=== PATIENT | male | born 1975 | race Caucasian/White ===

== ENCOUNTER 2018-11-12 23:17 | Emergency (ER) | payer OTHER ==
[2018-11-13] MEDS ORDERED: DEXAMETHASONE 10 MG/ML VIAL PO STA (00:34)
[2018-11-13] MEDS ORDERED: CHERRY SYRUP 10 ML UDC PO ONE (00:34)
[2018-11-13] MEDS ORDERED: HYDROcod/ACET 5/325 Prepack 4 PO STA (00:35)
[2018-11-13] MEDS ORDERED: KETOROLAC 60 MG/2 ML VIAL IM STA (00:35)
--- NOTE | 2018-11-13 00:37 | ED Physician Documentation ---
History of Present Illness - Stated complaint Stated Complaint: SWOLLEN KNEE - Chief complaint Chief Complaint: Ext Problem - History obtained from History obtained from: Patient - History of Present Illness Timing: Today - Additonal information Additional information: 43-year-old male with history of gout has been at his son's wedding today when he began to develop some swelling to his right knee. This progressed through the day and now he has significant pain associated with this as well as some swelling. He denies any injury to the area he denies any prior injury or prior issues with pain in his right knee. He has had gout usually in the right great toe he states this feels somewhat similar to what he has had. Review of Systems Constitutional: denies: Fever Eyes: denies: Decreased vision Ears: denies: Ear pain Nose: denies: Congestion Throat: denies: Sore throat Respiratory: denies: Dyspnea, Cough GI: denies: Abdominal Pain, Nausea, Vomiting : denies: Dysuria, Frequency Skin: denies: Rash Musculoskeletal: reports: Joint pain, Joint swelling, Pain with weight bearing. denies: Neck pain, Back pain PD PAST MEDICAL HISTORY - Past Medical History Past Medical History: Yes Cardiovascular: Hypertension Musculoskeletal: Gout - Past Surgical History Past Surgical History: Yes General: Appendectomy - Present Medications Home Medications: Ambulatory Orders Medication Instructions Recorded Confirmed Allopurinol 100 mg PO DAILY 11/12/18 11/12/18 Lisinopril/Hydrochlorothiazide 1 tab PO DAILY 11/12/18 11/12/18 [Lisinopril-Hctz 20-25 mg Tab] Hydrocodone/Acetaminophen 1 - 2 each PO Q6H PRN #14 tablet 11/13/18 [Hydrocodon-Acetaminophen 5-325] Indomethacin 25 - 50 mg PO Q6HR PRN #30 capsule 11/13/18 - Allergies Allergies/Adverse Reactions: Allergies Allergy/AdvReac Type Severity Reaction Status Date / Time No Known Drug Allergies Allergy Verified 11/12/18 23:35 - Social History Does the pt smoke?: No Smoking Status: Never smoker Does the pt drink ETOH?: No Does the pt have substance abuse?: No - Immunizations Immunizations are current?: No Immunizations: TDAP >10years/unknown - POLST Patient has POLST: No PD ED PE NORMAL - Vitals Vital signs reviewed: Yes (hypertensive ) - General General: Alert and oriented X 3, No acute distress, Well developed/nourished - HEENT HEENT: Atraumatic, PERRL, EOMI - Respiratory Respiratory: No respiratory distress - Derm Derm: Normal color, Warm and dry, No rash - Extremities Extremities: No deformity, Other (There is a joint effusion to the right knee. T he ligaments are stable to testing and there is normal ROM but with some pain the distal n/v is intact. ) - Neuro Neuro: Alert and oriented X 3, head automatic sawyer 2-12 intact, No motor deficit, No sensory deficit, Normal speech Eye Opening: Spontaneous Motor: Obeys Commands Verbal: Oriented GCS Score: 15 - Psych Psych: Normal mood, Normal affect Results - Vitals Vitals: Vital Signs - 24 hr 11/12/18 11/13/18 23:20 01:08 Temperature 36.6 C Heart Rate 67 52 L Respiratory 16 16 Rate Blood Pressure 149/90 H 125/96 H O2 Saturation 98 99 Oxygen O2 Source Room air PD MEDICAL DECISION MAKING - ED course Complexity details: considered differential, d/w patient ED course: 43 y/o male with a history of gout has knee swelling and refuses arthrocentesis. He is adminsitered decadron 10mg and toradal and has some improvement. Departure - Departure Disposition: 01 Home, Self Care Clinical Impression: Gout attack Qualifiers: Gout site: knee Gout etiology: unspecified cause Laterality: right Qualified Code(s): M10.9 - Gout, unspecified Condition: Stable Instructions: ED Arthritis Gout Follow-Up: Your, doctor [Other] Prescriptions: Indomethacin 25 - 50 mg PO Q6HR PRN #30 capsule PRN Reason: Pain Hydrocodone/Acetaminophen [Hydrocodon-Acetaminophen 5-325] 1 - 2 each PO Q6H PRN #14 tablet PRN Reason: pain Forms: Activity restrictions Discharge Date/Time: 11/13/18 01:15
[2018-11-13 01:09] VITALS: BP 125/96
== END 2018-11-13 01:15 | disposition home or self-care (01) ==
LOC: ED 23:17
DX: M10.9 Gout, unspecified (principal); I10 Essential (primary) hypertension; Z53.20 Procedure and treatment not carried out because of patient's decision for unspecified reasons
CPT/HCPCS: 96372; 99283; A9270